=== PATIENT | female | born 1950 | race Hispanic/Latino ===

== ENCOUNTER 2021-04-08 07:04 | Day surgery (SDC) | payer BC ==
[2021-04-08] MEDS ORDERED: ASPIRIN EC 325 MG TAB PO NR (07:35)
[2021-04-08 07:56] LABS: Basophils # (Auto) 0.1 K/mm3 (0.0-0.1); Basophils % (Auto) 1.1 % (0.0-1.8); Eosinophils # (Auto) 0.2 K/mm3 (0.0-0.4); Eosinophils % (Auto) 3.6 % (0.0-4.3); Hematocrit 40.4 % (30.3-42.9); Hemoglobin 12.9 gm/dl (10.1-14.3); Lymphocytes % (Auto) 18.2 % (13.4-35.0); Mean Corpuscular HGB Conc 32 % (30-34); Mean Corpuscular Volume 87 fl (79-97); Monocytes # (Auto) 0.5 K/mm3 (0.0-0.8); Monocytes % (Auto) 9.5 % (0.0-7.3); Platelet Count 214 K/mm3 (140-440); Red Blood Count 4.64 M/mm3 (3.65-5.03)
[2021-04-08] MEDS ORDERED: SODIUM CHLORIDE 0.9% 500 ML 500 ML IV SCH (08:00)
[2021-04-08 08:07] LABS: BUN/Creatinine Ratio 18; Blood Urea Nitrogen 16 mg/dL (7-17); Calcium 10.1 mg/dL (8.4-10.2); Hemolysis Index 3; INR 0.79 (0.87-1.13); Partial Thromboplastin Time 25.3 Sec. (24.2-36.6)
[2021-04-08] MEDS ORDERED: HEPARIN 10,000 UNITS/10 ML VIAL ONE ×2 (08:25→08:27)
[2021-04-08] MEDS ORDERED: MIDAZOLAM 2 MG/2 ML INJ ONE (08:25)
[2021-04-08] MEDS ORDERED: HEPARIN/NS 5000 UNIT/500ML 1,000 ML IR ONE (08:25)
[2021-04-08] MEDS ORDERED: NITROGLYCERIN SYRINGE 3 ML ONE (08:26)
[2021-04-08] MEDS ORDERED: fentaNYL 100 MCG/2 ML INJ ONE (08:26)
[2021-04-08] MEDS ORDERED: VERAPAMIL 5 MG/2 ML INJ ONE (08:26)
[2021-04-08] MEDS ORDERED: LIDOCAINE (2%) 20 MG/1 ML VIAL 20 ML MDV INFILTRATI ONE (08:40)
[2021-04-08] MEDS ORDERED: SODIUM CHLORIDE 0.9% 1000 ML 1,000 ML IV SCH (09:30)
--- NOTE | 2021-04-08 09:55 | Cardiac Catherization Report ---
DATE OF PROCEDURE: 04/08/2021 CARDIAC CATHETERIZATION INDICATION FOR THE PROCEDURE: 1. Shortness of breath. 2. Equivocal stress test. ORDERING PROVIDER: Jay Jay Monet MD PROCEDURES PERFORMED: 1. Selective left coronary angiography. 2. Selective right coronary angiography. 3. Left ventriculography. DESCRIPTION OF PROCEDURE: After obtaining written consent, the patient was draped using sterile technique. After verifying the radial and ulnar artery flows on the right side, a radial artery access was obtained with a 6-Macanese vascular sheath. A 5-Macanese JL3.5 catheter was used to selectively engage the left coronary artery. A 5-Macanese JR4 catheter was used to selectively engage the right coronary artery. A 5-Macanese JR4 catheter was used to hand inject the left ventriculogram. No complications occurred during the procedure. Hemostasis was achieved at the end of the procedure using manual pressure. Total sedation administered was 1 mg of IV Versed and 50 mcg of IV fentanyl. Physician/patient face to face sedation start time is 8:44 a.m. Physician/patient face to face sedation stop time is 9:05 a.m. TOTAL SEDATION TIME: 21 minutes. ESTIMATED BLOOD LOSS: Minimal. COMPLICATIONS: None. SPECIMEN REMOVED: None. FINDINGS: HEMODYNAMICS: 1. Aortic pressure was 135/85. 2. Left ventricular systolic pressure was 135 mmHg. 3. Left ventricular end-diastolic pressure was measured at 22 mmHg. 4. Cardiac structures: The left ventricle is normal in size. The left ventricular ejection fraction is normal, estimated at 60% with normal wall motion. CORONARY ANATOMY: 1. The left main is angiographically normal. 2. The LAD is angiographically normal. 3. The left circumflex artery is angiographically normal. 4. The right coronary artery is angiographically normal. 5. This is a right dominant circulation. IMPRESSION: 1. Angiographically normal right dominant coronary circulation. 2. Normal left ventricular size and systolic function with an ejection fraction estimated at 60%. 3. Left ventricular end-diastolic pressure estimated at 22 mmHg. RECOMMENDATIONS: Continue current management and follow up with the referring provider. CONDITION UPON DISCHARGE: Stable. DISCHARGE LOCATION: Home. TID: [id number] RECEIPT: [id number] RAMON/AVINASH
[2021-04-08] MEDS ORDERED: traMADol 50 MG TAB PO PRN (10:00)
[2021-04-08] MEDS ORDERED: HYDROcodone/ACETAMINOPHEN 5-325 MG TAB PO PRN (10:00)
[2021-04-08 12:35] VITALS: BP 118/54
== END 2021-04-08 14:10 | disposition home or self-care (01) ==
LOC: CATHLABREC 07:04
PROVIDERS: ATTEND Internal Medicine
DX: R53.83 Other fatigue (principal); I10 Essential (primary) hypertension; E78.00 Pure hypercholesterolemia, unspecified; M19.90 Unspecified osteoarthritis, unspecified site; E03.9 Hypothyroidism, unspecified; F32.9 Major depressive disorder, single episode, unspecified; Z87.891 Personal history of nicotine dependence; Z79.84 Long term (current) use of oral hypoglycemic drugs; Z79.899 Other long term (current) drug therapy; Z98.890 Other specified postprocedural states; Z88.8 Allergy status to other drugs, medicaments and biological substances
CPT/HCPCS: 36415; 80048; 85025; 85610; 85730; 93458; 99156; C1894; J1644; J1815; J2250; J3010; J3490; J7040; Q9967